=== PATIENT | female | born 1995 | race Caucasian/White ===

== ENCOUNTER → 2023-03-16 11:45 | Outpatient (CLI) | payer BC, SELFPAY ==
--- NOTE | ~2023-03-16 | MMUS_ITS ---
EXAMINATION: MM diagnostic sid RT w obed, US breast RT complete HISTORY: Palpable right breast lump TECHNIQUE: Additional 3-D tomosynthesis images of the right breast were performed and synthetic 2-D i mages were generated. CAD analysis was submitted and interpreted. High resolution complete right gemma st ultrasound was performed. COMPARISON: None BREAST PARENCHYMAL COMPOSITION: The breasts are heterogeneously dense, which may obscure small masses FINDINGS: MAMMOGRAPHIC FINDINGS: There is a focal asymmetry in the lower outer quadrant of the right breast, middle third, best seen o n CC view. ULTRASOUND: Limited right breast ultrasound: At 8:00, 5 cm from the nipple is an irregular shaped hypoechoic mass measuring 6 x 9 x 5 mm without posterior features and parallel orientation. No internal vascularity. IMPRESSION: 1. Irregular shaped 9 mm right breast mass at 8:00, 5 cm from the nipple. There is corresponding foca l asymmetry by mammography. No suspicious associated calcifications or architectural distortion. 2. Ultrasound-guided right breast biopsy recommended. BI-RADS category 4, suspicious findings. Reviewed, dictated and finalized at location A. IMPRESSION: 1. Irregular shaped 9 mm right breast mass at 8:00, 5 cm from the nipple. There is corresponding focal asymmetry by mammography. No suspicious associated calc ifications or architectural distortion. 2. Ultrasound-guided right breast biopsy recommended. BI-RADS category 4, suspicious findings.
== END ==
PROVIDERS: PCP Nurse Practitioner; Visit Provider Nurse Practitioner
DX: N63.10 Unspecified lump in the right breast, unspecified quadrant (principal); R92.8 Other abnormal and inconclusive findings on diagnostic imaging of breast
CPT/HCPCS: 76641; 77061; 77065; G0279

== ENCOUNTER 2023-12-12 17:56 | Emergency (ER) | payer BC, SELFPAY ==
--- NOTE | ~2023-12-12 | US_ITS ---
EXAMINATION: US pelvic limited DATE: 12/12/2023 20:17 INDICATION: Retained products of conception. TECHNIQUE: Multiple transabdominal sonographic images of the pelvis were obtained. COMPARISON: None. FINDINGS: The uterus measures 8.3 x 5.7 x 6.4 cm. There is no free fluid in the pelvis. The endometrial complex measures 13 mm in thickness without internal vascular flow. The right ovary measures 3.8 x 2.3 x 2.8 cm. The left ovary measures 4.1 x 1.9 x 3.5 cm. There is normal vascular flow in the ovaries. IMPRESSION: 1. Mildly thickened endometrial complex suspicious for retained products of conception. Reviewed, dictated and finalized at location E. IMPRESSION: 1. Mildly thickened endometrial complex suspicious for retained products of con ception.
[2023-12-12 17:59] VITALS: BP 155/86; PULSE 118; RESP 18; TEMP 36.9; O2SAT 100
[2023-12-12 18:32] LABS: Appearance Urine Cloudy (Clear); Bacteria Urine 1+ /hpf; Bilirubin Urine Negative (Negative); Blood Urine Negative (Negative); Color Urine Dark Yellow (Yellow); Glucose Urine UA Negative (Negative); Ketones Urine 2+ mg/dL (Negative); Leukocyte Esterase Ur 1+ LEU/UL (Negative); Nitrate Urine Negative (Negative); Non Pathogenic Casts 0-2; Protein Urine Negative (Negative); RBC Urine 0-2 /hpf (0-2); Specific Grav Ur 1.022 (1.001-1.035); Squamous Epithelial Cell Urine Many /hpf (Few); Urobilinogen Urine 0.2 mg/dL (<2.0)
[2023-12-12 18:43] LABS: Add Urine Microscopic? YES
--- NOTE | 2023-12-12 19:37 | ED.FEMALEGU ---
HPI - Female Genitourinary General Chief complaint: Urogenital-Female Stated complaint: Pelvic Pain Time Seen by Provider: 12/12/23 19:05 Source: patient Mode of arrival: ambulatory Limitations: no limitations History of Present Illness HPI Narrative: 28-year-old female presenting for pelvic pain. Had a medical 3 weeks ago insert having pelvic pain about a week ago. Had some vaginal bleeding after sex yesterday but otherwise has not had any no GI complaints. Thinks she might have retained products of conception or PID. Related Data Allergies Allergy/AdvReac Type Severity Reaction Status Date / Time No Known Allergies Allergy Verified 12/12/23 20:46 Review of Systems Review of Systems: All systems reviewed & are unremarkable except as noted in HPI and below Exam Narrative: Constitutional: Generally well appearing, no acute distress Head: Atraumatic, no deformities. Eyes: Pupils equal, round, and reactive to light. Neck: Supple, no tracheal deviation, no JVD. ENMT: Mucous membranes moist Cardiovascular: S1, S2 auscultated. No murmurs, rubs, or gallops. No S3/S4. Normal Distal pulses. No peripheral edema. Respiratory: Lung sounds equal. No wheezes, rales, or rhonchi. Gastrointestinal: Abdomen was soft and mildly tender in the suprapubic region. Non-distended. No rebound or guarding. Genitourinary: Deferred Musculoskeletal: Normal muscle tone and bulk. No obvious deformities or tenderness over extremities. Skin: No rashes. Neurological: Strength 5/5 in extremities. Cranial nerves I-XII grossly intact. Distal sensation intact. Mental Status: Awake, alert and oriented x3. Follows commands Course Vital Signs Vital signs: Vital Signs Temperature 36.9 C 12/12/23 17:59 Pulse Rate 118 H 12/12/23 17:59 Respiratory Rate 18 12/12/23 17:59 Blood Pressure 155/86 H 12/12/23 17:59 Pulse Oximetry 100 12/12/23 17:59 Oxygen Delivery Room Air 12/12/23 17:59 Temperature 36.9 C 12/12/23 17:59 Pulse Rate 118 H 12/12/23 17:59 Respiratory Rate 18 12/12/23 17:59 Blood Pressure 155/86 H 12/12/23 17:59 Pulse Oximetry 100 12/12/23 17:59 Oxygen Delivery Room Air 12/12/23 17:59 MDM - Female Genitourinary MDM Narrative Medical decision making narrative: 28-year-old female presenting from superior pain, 3 weeks after a medical in which she took pills. Started a few days ago. On exam she is well-appearing. Slightly tachycardic in triage. Abdomen is generally benign with mild tenderness in the suprapubic room. I would like to obtain an ultrasound to rule out retained products of conception but we do not have access to it tonight because they are not available. obtain some basic labs we giving IV fluid bolus. Labs are unremarkable. ultrasound shows retained products of conception. Discussed with OBGYN on-call Dr. Vazquez would like patient given a dose of Cytotec, no antibiotics needed, and discharged to follow-up with OBGYN in 1 day. Patient is agreeable with the plan. cytotec is ordered p.o. according to OBGYN. Pt feeling improved and would like to go home at this point. Return precautions were given to the patient include any new or worsening symptoms or development of and not limited to any chest pain, shortness of breath, lightheadedness, abdominal pain, fevers, chills. Patient understands and agrees. They are to follow-up with her PCP. All questions were answered. I reviewed the patient's vital signs, history, allergies, and labs and imaging workup. Lab Data 12/12/23 20:19 12/12/23 20:19 Labs: Lab Results 12/12/23 12/12/23 Range/Units 18:04 20:19 WBC 7.3 (4.5-10.0) K/mm3 RBC 4.13 L (4.2-5.4) M/mm3 Hgb 13.0 (12.0-15.0) g/dL Hct 38.9 (37.0-47.0) % MCV 94.2 (80-100) fl MCH 31.5 (26-34) pg MCHC 33.4 (32-36) g/dl RDW 13.2 (11.5-14.5) % Plt Count 247 (150-375) k/mm3 MPV 10.8 H (7.4-10.4) fl Immat
[2023-12-12 20:25] LABS: Basophils Percent Auto 0.4 % (0.2-1.2); Eosinophils Absolute Auto 0.1 K/mm3 (0-0.3); Eosinophils Percent Auto 1.1 % (0-4.4); Hematocrit 38.9 % (37.0-47.0); Immature Granulocyte Absolute 0.02 K/mm3 (0.00-0.031); Immature Granulocyte Percent A 0.3 % (0-0.5); Lymphocytes Absolute Auto 2.09 K/mm3 (0.9-3.2); Lymphocytes Percent Auto 28.5 % (18.3-44.2); Mean Corpuscular HGB Conc 33.4 g/dl (32-36); Mean Corpuscular Hemoglobin 31.5 pg (26-34); Mean Corpuscular Volume 94.2 fl (80-100); Mean Platelet Volume 10.8 fl (7.4-10.4); Monocytes Absolute Auto 0.4 K/mm3 (0.1-0.6); Neutrophils Absolute Auto 4.7 K/mm3 (1.3-6.7); Neutrophils Percent Auto 63.7 % (45.5-73.1); Platelet Count Result 247 k/mm3 (150-375); Red Blood Count 4.13 M/mm3 (4.2-5.4); Red Cell Distribution Width 13.2 % (11.5-14.5); White Blood Count 7.3 K/mm3 (4.5-10.0)
[2023-12-12 20:38] LABS: Alanine Aminotransferase 19 U/L (6-35); Albumin Level 4.9 g/dL (3.5-5.1); Alkaline Phosphatase 59 U/L (38-126); Anion Gap 9 mmol/L (4-12); Aspartate Amino Transferase 25 U/L (14-36); Bilirubin,Total 0.7 mg/dL (0.2-1.3); Blood Urea Nitrogen 5 mg/dL (7-17); Calcium 9.6 mg/dL (8.4-10.2); Carbon Dioxide 24 mmol/L (22-30); Chloride 106 mmol/L (98-107); Estimated CRCL calculation 109 ml/min; Estimated Glomerular Filt Rate > 60; Glucose 93 mg/dL (65-110); Potassium 3.6 mmol/L (3.4-5.0); Sodium 139 mmol/L (137-145)
[2023-12-12] MEDS: miSOPROStol 200 MCG TABLET 800 MCG PO (20:56)
[2023-12-12] MEDS: Please add drug allergy info to patient profile. 1 EACH XX (20:58)
[2023-12-12 20:59] VITALS: BP 142/88; PULSE 92; RESP 15; O2SAT 99
== END 2023-12-12 21:01 | disposition home or self-care (01) ==
PROVIDERS: Physician Assistant; Emergency Provider Emergency Medicine; PCP Nurse Practitioner
DX: O07.4 Failed attempted termination of pregnancy without complication (principal)
CPT/HCPCS: 36415; 76857; 80053; 81001; 81025; 85025; 87086; 87088; 99284; A9270